=== PATIENT | female | born 1990 | race Caucasian/White ===

== ENCOUNTER 2016-07-15 21:49 | Emergency (ER) | payer MEDICAID ==
[~2016-07-15] VITALS: Ht 162.6 cm; Wt 98.4 kg
[~2016-07-15 21:49] MED LIST: BIRTH CONTROL PILLS; MICO1COM
[2016-07-15 21:50] VITALS: BP_SYST 149
[2016-07-16] MEDS ORDERED: KETOROLAC TROMETHAMINE 60 MG/2 ML VIAL IM ONE
[2016-07-16] MEDS ORDERED: DEXAMETHASONE SOD PHOSPHATE 10 MG/ML VIAL IM ONE
[2016-07-16 00:58] VITALS: BP_SYST 149
== END 2016-07-16 00:58 | disposition home or self-care (01) ==
LOC: SED 21:49
DX: J20.9 Acute bronchitis, unspecified (principal); R51 Headache; R11.10 Vomiting, unspecified
CPT/HCPCS: 71010; 96372; 99284; J1100; J1885

== ENCOUNTER 2016-11-08 18:45 | Emergency (ER) | payer MEDICAID ==
[~2016-11-08] VITALS: Ht 162.6 cm; Wt 99.8 kg
[2016-11-08 19:00] VITALS: BP_SYST 104
[2016-11-08 19:59] LABS: BLOOD, URINE 3+ (NEGATIVE); CLARITY/URINE HAZY (CLEAR); COLOR,URINE YELLOW (YELLOW); GLUCOSE,URINE NEGATIVE (NEGATIVE); KETONES,URINE NEGATIVE (NEGATIVE); LEUKOCYTE ESTERASE ,URINE NEGATIVE (NEGATIVE); NITRITE, URINE NEGATIVE (NEGATIVE); PROTEIN URINE 1+ (NEGATIVE); UROBILINOGEN,URINE 0.2 (0.2-1.0)
[2016-11-08 20:13] LABS: BILIRUBIN,URINE NEGATIVE (NEGATIVE)
[2016-11-08 20:15] LABS: BACTERIA,URINE FEW /HPF (None Seen); MUCUS,URINE None Seen /LPF (None Seen); RBC,URINE 50-80 /HPF (0-3); WBC,URINE NONE SEEN /HPF (0-3)
[2016-11-08 21:18] LABS: BASOPHILS # (AUTO) 0.1 K/uL (0.0-0.2); BASOPHILS % (AUTO) 0.4 % (0.0-2.0); EOSINOPHILS # (AUTO) 0.1 K/uL (0.0-0.4); EOSINOPHILS % (AUTO) 1.1 % (0.0-4.0); HEMATOCRIT 41.1 % (36-48); HEMOGLOBIN 13.9 g/dL (12.0-16.0); LYMPHOCYTES # (AUTO) 2.5 K/uL (1.0-5.5); LYMPHOCYTES % (AUTO) 19.8 % (20.5-51.5); MEAN CORPUSCULAR HEMOGLOBIN 30 pg (27-31); MEAN CORPUSCULAR HGB CONC 34 % (32-36); MEAN CORPUSCULAR VOLUME 87 fL (79.0-98.0); MONOCYTES # (AUTO) 0.7 K/uL (0.0-1.0); MONOCYTES % (AUTO) 5.7 % (1.7-9.3); NEUTROPHILS # (AUTO) 9.4 K/uL (1.8-7.7); PLATELET COUNT (AUTO) 309 K/uL (130-430); RED BLOOD CELL COUNT(AUTO) 4.73 MIL/uL (4.2-6.2); RED CELL DISTRIBUTION WIDTH 12.4 % (9.0-15.0); WHITE BLOOD COUNT (AUTO) 12.8 K/uL (4.8-10.8)
--- NOTE | 2016-11-08 21:28 | NUR ---
Patient to ER bed 6 to gown for evaluation. Side rails up. Report given to JULIET SCHMITT.
--- NOTE | 2016-11-08 21:30 | NUR ---
Patient AAOx4, ambulatory with steady gait. Patient states having abnormal vaginal bleeding since earlier this afternoon at 1700, states "began as spotting, then noticed moderate bleeding after". Patient states only mild spotting has been present since ER visit. Patient denies pain at this time. Patient states she is approximately "11 week ". Pt denies any other complaints.
[2016-11-08 21:38] LABS: CALCIUM 8.7 mg/dL (8.4-11.0); CREATININE 0.5 mg/dL (0.55-1.30)
--- NOTE | 2016-11-08 21:40 | NUR ---
FAN Pelletier at bedside examining patient.
[2016-11-08 21:57] LABS: ALBUMIN 3.3 g/dL (3.4-4.8); TOTAL BILIRUBIN 0.2 mg/dL (0.0-1.0)
[2016-11-08 22:35] VITALS: BP_SYST 107
--- NOTE | 2016-11-08 22:35 | NUR ---
Patient given written and verbal discharge instructions and verbalizes understanding. ER MD discussed with patient the results and treatment provided. Patient in stable condition. ID arm band removed. Patient educated on pain management and to follow up with PMD. Pain Scale 0/10. Opportunity for questions provided and answered.
== END 2016-11-08 22:35 | disposition home or self-care (01) ==
LOC: SED 18:45
DX: O20.0 Threatened abortion (principal); Z3A.11 11 weeks gestation of pregnancy
CPT/HCPCS: 36415; 76815; 80053; 81000-TC; 81025; 84702-TC; 85025; 86900; 86901; 99285